=== PATIENT | male | born 1955 | race Caucasian/White ===

== ENCOUNTER 2021-04-11 06:22 | Emergency (ER) | payer OTHER ==
[~2021-04-11] VITALS: Ht 180.3 cm; Wt 117.9 kg
[2021-04-11 08:27] LABS: ABSOLUTE NEUTROPHILS 6.7 thou/uL (1.4-8.2); BASOPHILS 1.1 % (0.0-2.0); EOSINOPHILS 5.4 % (0.0-3.0); HEMOGLOBIN 14.8 gm/dL (14.0-18.0); LYMPHOCYTES 20.7 % (24.0-44.0); MCH 30.8 pg (26.0-34.0); MCHC 33.6 g/dL (28.0-37.0); MCV 91.5 fL (80.0-100.0); MONOCYTES 10.6 % (1.0-8.0); PLATELET COUNT 244 thou/uL (150-400); POLYS 62.2 % (36.0-66.0); RBC 4.81 mil/uL (4.50-6.00); RDW 14.1 % (10.5-14.5); WBC 10.7 thou/uL (4.0-11.0)
[2021-04-11 08:44] LABS: CALCIUM 9.1 mg/dL (8.5-10.1); POTASSIUM 3.9 mmol/L (3.5-5.1)
[2021-04-11 09:46] LABS: APTT 30.1 Seconds (24.5-32.8); INR 2.1; PROTIME 21.7 Seconds (9.3-11.4)
[2021-04-11 12:18] VITALS: BP 173/80
== END 2021-04-11 12:18 | disposition home or self-care (01) ==
LOC: ER 06:22
PROVIDERS: Emergency Medicine
DX: S46.812A Strain of other muscles, fascia and tendons at shoulder and upper arm level, left arm, initial encounter (principal); I50.9 Heart failure, unspecified; I48.91 Unspecified atrial fibrillation; I10 Essential (primary) hypertension; Z86.73 Personal history of transient ischemic attack (TIA), and cerebral infarction without residual deficits; Z79.01 Long term (current) use of anticoagulants; W06.XXXA Fall from bed, initial encounter; Y93.89 Activity, other specified; Y92.89 Other specified places as the place of occurrence of the external cause; Y99.8 Other external cause status

== ENCOUNTER 2021-05-18 04:37 | Emergency (ER) | payer OTHER ==
[~2021-05-18] VITALS: Ht 185.4 cm; Wt 135.2 kg
--- NOTE | ~2021-05-18 | EMS ---
[address] [address] EMS Patient Care Report Name: ANGELIKA GARCIA Room #: DEP HAL Echavarria#: [id number] Admission: 05/18/21 Attend Phys: Discharge: 05/18/21 Date of : 53 Report #: [id number] THIS REPORT FOR: //name// Report Transmitted: 05/21/2021 14:08 EMS Care Summary [place], [place]/[facility] Incident [id number] @ 05/18/2021 03:56 Incident Location [id number] [place] [address] Patient ANGELIKA GARCIA Male, 66 Years 1955 Patient Address [address] [place], [place] [id number] Patient History Hypertension (HTN),Stroke/CVA, Patient Allergies No known allergies, Patient Medications Amiodarone, Levothyroxine, Eliquis, Amlodipine, Atorvastatin, Chief Complaint HEMATOMA TO HEAD Disposition Transported No Lights/[place] Dispatch Reason Falls Transported To [facility] Narrative DISPATCHED EMERGENCY TO THE SCENE OF A REPORTED FALL. UPON ARRIVAL, FOUND PATIENT LAYING SUPINE IN BED, ALERT AND ORIENTED X4, DENYING ANY PAIN OR DISCOMFORT. NURSING STAFF STATES THAT THE PATIENT HAD ROLLED OUT OF BED, [address] [address] EMS Patient Care Report Name: ANGELIKA GARCIA Room #: DEP ER [place]#: [id number] Admission: 05/18/21 Attend Phys: Discharge: 05/18/21 Date of : 53 Report #: [id number] STRIKING HIS FOREHEAD ON THE FLOOR, CAUSING A HEMATOMA ABOVE THE LEFT EYE. PATIENT DENIES ANY LOSS OF CONSCIOUSNESS. PATIENT IS TRANSFERRED TO THE COT AND SECURED. TRANSPORTED TO THE AMBULANCE, LOADED, AND SECURED. VITAL SIGNS ASSESSED. PATIENT IS TRANSPORTED TO [facility] IN A POSITION OF COMFORT. VITAL SIGNS MONITORED DURING TRANSPORT. PATIENT CARE TRANSFERRED TO ED STAFF. Initial Vitals @04:28P: 111,R: 18,BP: 142/91,Pain: 0/10,GCS: 15,SpO2: 97,Revised Trauma: 12, @04:17P: 86,R: 18,BP: 155/86,Pain: 0/10,GCS: 15,CO: 2,SpO2: 97,Revised Trauma: 12, Assessments @04:10MENTAL:Time Oriented,Person Oriented,Place Oriented,Event Oriented,SKIN:HEENT:Eyes: ECC,Head/Face: Swelling,Neck/Airway: No Abnormalities,LUNG SOUNDS:General: No Abnormalities,ABDOMEN:General: No Abnormalities,PELVIS//GI:No Abnormalities,EXTREMITIES:Left Leg: Paralysis,Left Arm: Paralysis,Right Arm: No Abnormalities,Right Leg: No Abnormalities,PULSE:Radial: 2+ Normal,NEURO:No Abnormalities, Impression Injury of Head Procedures @04:10ALS AssessmentResponse: UnchangedSucceeded Timeline 03:54,Call Received 03:54,Dispatch Notified 03:56,Dispatched 03:58,En Route 04:05,On Scene 04:10,At Patient 04:10,ALS Assessment,Response: UnchangedSucceeded, 04:17,BP: 155/86 M,PULSE: 86,RR: 18 R,SPO2: 97 Ox,ETCO2: ,BG: ,PAIN: 0,GCS: 15, 04:19,Depart Scene 04:28,BP: 142/91 M,PULSE: 111,RR: 18 R,SPO2: 97 Ox,ETCO2: ,BG: ,PAIN: 0,GCS: 15, 04:28,At Destination 04:42,Call Closed Disclaimer v1.1 Copyright 2020 [employer] This EMS Care Summary contains data elements from the applicable legal record (which may be displayed differently). It is designed to provide pertinent information for the following purposes: continuity of care, clinical quality, [address] [address] EMS Patient Care Report Name: ANGELIKA GARCIA Room #: DEP HAL Echavarria#: [id number] Admission: 05/18/21 Attend Phys: Discharge: 05/18/21 Date of : 53 Report #: [id number] and state data reporting. The complete legal record is available to ED staff and administrators of the receiving hospital in [employer]'s Patient Tracker. All data is provided "as is."
[2021-05-18 10:54] VITALS: BP 173/87
== END 2021-05-18 10:55 | disposition home or self-care (01) ==
LOC: ER 04:37
DX: D68.318 Other hemorrhagic disorder due to intrinsic circulating anticoagulants, antibodies, or inhibitors (principal); I11.0 Hypertensive heart disease with heart failure; I48.91 Unspecified atrial fibrillation; I50.9 Heart failure, unspecified; Z86.73 Personal history of transient ischemic attack (TIA), and cerebral infarction without residual deficits; W06.XXXA Fall from bed, initial encounter; Y93.89 Activity, other specified; Y92.89 Other specified places as the place of occurrence of the external cause; Y99.8 Other external cause status

== ENCOUNTER 2021-06-08 08:17 | Inpatient (IN) | payer OTHER ==
[~2021-06-08] VITALS: Ht 180.3 cm; Wt 169.8 kg
--- NOTE | ~2021-06-08 | EMS ---
[address] [address] EMS Patient Care Report Name: ANGELIKA GARCIA Room #: REG HAL Echavarria#: [id number] Admission: 06/08/21 Attend Phys: Discharge: Date of : 53 Report #: [id number] THIS REPORT FOR: //name// Report Transmitted: 06/08/2021 07:48 EMS Care Summary [place], [place]/[facility] Incident [id number] @ 06/08/2021 07:40 Incident Location [address] [place] [address] Patient ANGELIKA GARCIA Male, 66 Years 1955 Patient Address [address] [place], [place] [id number] Patient History Hypertension (HTN),Stroke/CVA, Patient Allergies No known allergies, Patient Medications Amiodarone, Amlodipine, Atorvastatin, Levothyroxine, Eliquis, Chief Complaint vomiting blood Disposition Transported No Lights/[place] Dispatch Reason Hemorrhage/Laceration Transported To [facility] Narrative pt found a&o in bed. staff called when pt projectile vomited a large amount of dark red blood w/ clots. no diarrhea. pt states it was unexpected b/c he did not feel sick. he states he feels fine now. no c/o dizziness or abd pain or [address] [address] EMS Patient Care Report Name: ANGELIKA GARCIA Room #: REG HAL Echavarria#: [id number] Admission: 06/08/21 Attend Phys: Discharge: Date of : 53 Report #: [id number] nausea. pt is on blood thinners and has a pacemaker. pt req eval at [facility]. pt blanket pulled to [facility] [place] as listed in flow chart, transport w/o change. Initial Vitals @08:05P: 123,R: 50,BP: 150/78,Pain: 0/10,GCS: 15,SpO2: 95,Revised Trauma: 11, @07:48P: 118,R: 20,BP: 134/84,GCS: 15,SpO2: 95,Revised Trauma: 12, Assessments @07:48MENTAL:No Abnormalities,SKIN:No Abnormalities,HEENT:Head/Face: No Abnormalities,LUNG SOUNDS:General: Vomiting,ABDOMEN:General: Vomiting,PELVIS//GI:EXTREMITIES:PULSE:Radial: 2+ Normal,NEURO: Impression Gastrointestinal hemorrhage Procedures @07:48ALS AssessmentResponse: Unchanged@07:52StretcherResponse: Unchanged@07:563-Lead ECGResponse: Unchanged@08:00Saline Lock 0cc (20 ga) Site: Antecubital-RightResponse: UnchangedFailed Timeline 07:38,Call Received 07:38,Dispatch Notified 07:40,Dispatched 07:41,En Route 07:45,On Scene 07:48,At Patient 07:48,BP: 134/84 M,PULSE: 118,RR: 20 R,SPO2: 95 Ox,ETCO2: ,BG: ,PAIN: ,GCS: 15, 07:48,ALS Assessment,Response: Unchanged 07:52,Stretcher,Response: Unchanged 07:56,3-Lead ECG,Response: Unchanged 08:00,Saline Lock 0cc 20 ga Site: Antecubital-Right,Response: UnchangedFailed, 08:02,Depart Scene 08:05,BP: 150/78 M,PULSE: 123,RR: 50 R,SPO2: 95 Ox,ETCO2: ,BG: ,PAIN: 0,GCS: 15, 08:11,At Destination 08:41,Call Closed Disclaimer v1.1 Copyright 2020 [employer] This EMS Care Summary contains data elements from the applicable legal record (which may be displayed differently). It is designed to provide pertinent information for the following purposes: continuity of care, clinical quality, and state data reporting. The complete legal record is available to ED staff and administrators of the receiving hospital in [employer] Patient Tracker. All data is provided "as is."
[2021-06-08 08:18] VITALS: BP 143/98
[2021-06-08 08:40] LABS: HEMATOCRIT 36.6 % (42.0-52.0)
[2021-06-08 08:41] LABS: ABSOLUTE NEUTROPHILS 7.6 thou/uL (1.4-8.2); BASOPHILS 0.8 % (0.0-2.0); EOSINOPHILS 2.4 % (0.0-3.0); HEMOGLOBIN 11.9 gm/dL (14.0-18.0); LYMPHOCYTES 22.2 % (24.0-44.0); MCH 28.9 pg (26.0-34.0); MCHC 32.6 g/dL (28.0-37.0); MCV 88.7 fL (80.0-100.0); MONOCYTES 12.9 % (1.0-8.0); PLATELET COUNT 247 thou/uL (150-400); POLYS 61.7 % (36.0-66.0); RBC 4.12 mil/uL (4.50-6.00); RDW 13.5 % (10.5-14.5); WBC 12.4 thou/uL (4.0-11.0)
[2021-06-08 08:46] LABS: CALCIUM 8.8 mg/dL (8.5-10.1); CREATININE 0.9 mg/dL (0.7-1.3); POTASSIUM 4.1 mmol/L (3.5-5.1)
--- NOTE | 2021-06-08 08:50 | EKG ---
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: : 1955 Requested By: Leana Cole Order Number: [id number] MD: Thomas Rider Measurements Intervals [place] Rate: 90 P: FL: QRS: 248 QRSD: 141 T: -38 QT: 405 QTc: 496 Interpretive Statements Afib/flut and V-paced complexes No further analysis attempted due to paced rhythm No previous ECG available for comparison Electronically Signed On 06-08-2021 8:50:13 CDT by Thomas Rider [email or web address] <ELECTRONICALLY SIGNED> By: Thomas Rider MD, [facility] 06/08/21 0850 0818 08 Thomas Rider MD, [facility] /EPI
[2021-06-08 08:52] LABS: ALBUMIN 2.7 g/dL (3.4-5.0); TOTAL BILIRUBIN 0.6 mg/dL (0.2-1.0); TOTAL PROTEIN 6.1 g/dL (6.4-8.2)
[2021-06-08 09:13] LABS: APTT 25.2 Seconds (24.5-32.8); PROTIME 10.9 Seconds (9.3-11.4)
[2021-06-08] MEDS ORDERED: TYLENOL325 MG PO (09:16)
[2021-06-08] MEDS ORDERED: NORVASC5 MG PO (09:17)
[2021-06-08] MEDS ORDERED: ASA81BEC PO (09:17)
[2021-06-08] MEDS ORDERED: PACERONE100 MG PO (09:17)
[2021-06-08] MEDS ORDERED: LIPITOR 20 MG T20 M1 PO (09:17)
[2021-06-08] MEDS ORDERED: BACLOFEN5 MG PO (09:18)
[2021-06-08] MEDS ORDERED: B-12 DOTS500 MCG PO (09:19)
[2021-06-08] MEDS ORDERED: FOLIC ACID1 MG PO (09:19)
[2021-06-08] MEDS ORDERED: ELIQUIS5 MG PO (09:19)
[2021-06-08] MEDS ORDERED: VITAMIN D3250 MC2 PO (09:19)
[2021-06-08] MEDS ORDERED: GLYCOLAX119 GM PO (09:20)
[2021-06-08] MEDS ORDERED: LEVOTHYROXINE125 MC1 PO (09:20)
[2021-06-08] MEDS ORDERED: COZAAR100 MG PO (09:20)
[2021-06-08] MEDS ORDERED: LOPRESSOR50 MG PO (09:21)
[2021-06-08] MEDS ORDERED: MELATONIN5 MG SUBLING (09:21)
[2021-06-08] MEDS ORDERED: KLOR-CON 10 ER10 MEQ PO (09:21)
[2021-06-08] MEDS ORDERED: MAGOX 400400 MG PO (09:21)
[2021-06-08] MEDS ORDERED: PROAIR HFA8.5 GM INH (09:21)
[2021-06-08] MEDS ORDERED: SERTRALINE HCL100 MG PO (09:22)
[2021-06-08 11:40] LABS: URINE BILIRUBIN NEGATIVE (Negative); URINE BLOOD NEGATIVE (Negative); URINE CLARITY CLEAR; URINE COLOR YELLOW; URINE GLUCOSE-RANDOM* NEGATIVE (Negative); URINE KETONES TRACE (Negative); URINE NITRITE-REFLEX NEGATIVE (Negative); URINE PROTEIN (DIPSTICK) NEGATIVE (Negative); URINE UROBILINOGEN 0.2 E.U./dl (0.2-1.0)
[2021-06-08 11:43] LABS: URINE LEUKOCYTES-REFLEX 1+ (Negative)
[2021-06-08 12:04] LABS: CASTS None Seen /LPF (None Seen); CRYSTALS None Seen /LPF (None Seen); SQUAMOUS None Seen /LPF (0-3); URINE RBC None Seen /HPF (NONE SEEN); URINE WBC-REFLEX 6-15 Few /HPF (0-5)
[2021-06-08 14:05] VITALS: BP 123/77
[2021-06-08 14:35] VITALS: BP 125/49
--- NOTE | 2021-06-08 15:30 | NUR ---
PT ARRIVED TO ROOM. PT FROM [facility] SINCE MARCH OF 2021. PT WAS HAVING PROJECTILE VOMITING AT FACILITY IN AM. PT DID HAVE BREAKFAST AT FACILITY. NOTICED PT RT NARES HAS DRIED BLOOD. PT DENIES ANY NAUSEA OR PAIN. PT HAS BOWEL SOUNDS. PT FLACCID TO LEFT SIDE OF BODY FROM STROKE, PT DRAWING UP ARM WHEN PUTTING ON BP CUFF. PT IS VERY SLEEPY BP FIRST INITIAL WAS 81/50, 70 PULSE, PT OXYGEN SAT 100% ON ROOM AIR. PT VISITED BY CARDIOLOGY [facility] AND SHE WANTED HIM ON TELE, PT HAS PACEMAKER TO LEFT CHEST. PT HAS HX OF AFIB, CHF, DYSPHAGIA, AND UTI THAT IS CHRONIC. APPLIED TELE MONITOR ON PT AND SHOWING PACED AT 70 RATE.
--- NOTE | 2021-06-08 15:40 | NUR ---
RECHECKED BP AND SHOWS 116/62. DID NOTICE THAT HE HAD AN OLD ARM BAND THAT WAS DATED 05/18.
[2021-06-08 15:50] VITALS: BP 116/62
--- NOTE | 2021-06-08 16:46 | NUR ---
PT ADMITTED RELATED TO UPPER GI BLEED, HEMATEMESIS, ANTICOAGULATED ON TX. CM REVIEWED CHART AND SPOKE WITH CARE TEAM. CM ATTEMPTED TO VISIT WITH PT THIS AFTERNOON BUT HE WAS SLEEPING SOUNDLY. CM CALLED CONTACT HARMAN AGUIRRE . HE INDICATED THAT HE IS PT'S DPOA FOR HC. HE RESIDES IN [place] BUT IS HERE IN CURRENTLY MEETING WITH [employer] TO PROVIDE DOCUMENTATION ON PT'S ASSESSTS FOR THEM TO COMPLETE [place]PLICATION FOR [place]. HARMAN IS PT'S SIG OTHER GARO CLARK'S COUSIN . SHE IS HOME BOUND. HARMAN INDICATED THAT PT HAD GONE TO [facility] IN MARCH AFTER STAY AT [facility] FOLLOWING STROKE. PT IS DEPENDANT FOR CARES. HE HAD BEEN ON A MECHSFT DIET AND HE STATED HE THINKS STAFF OBSERVED PT EATING. HE INDIATED THAT HE ANTICIPATES PT RETURNING HOME ONCE MEDICALLY STABLE. PT TO HAVE AN EGD TOMORROW AM. CM FOLLWING REGARDING DC PLANNING.
--- NOTE | 2021-06-08 18:55 | NUR ---
PT AWAKE DURING ASSESSMENT. PT ALERT AND ORIENTED X3. PT CALLED GIRLFRIEND GARO CLARK AND LEFT MESSAGE ON HER PHONE. PT STATED HE HAD A NOSE BLEED FOR A WHOLE DAY AND NIGHT, THEN THIS AM VOMITED BLACK SUBSTANCE. PT STATED HE HAS SOME PAIN TO BOTH KNEES. PT NPO AT THIS TIME. PT PLACED ON HEART MONITOR AND IS PACED PER PACEMAKER IN THE 70'S, PT DOES HAVE SOME HICCUPS THATS NEW AT THIS TIME.
[2021-06-08 21:18] VITALS: BP 167/90
--- NOTE | 2021-06-09 05:19 | NUR ---
ASSUMED PT CARE AT 1950. PT IS ALERT AND ORIENTED X4. PT HAS HX OF CVA WITH LUE WEAKNESS. PT HAS A PACEMAKER WIH DEFRIBRILLATOR ON THE R CHEST. PT IS CURRENTLY NPO. PT C/O BRYAN KNEE PAIN AND THE NOC CLOTH STRETCHER WAS INFORMED SINCE PT DID NOT HAVE PAIN MEDS IN [place]. VS ARE WITHIN NORMAL RANGE AND MEDS GIVEN PER [facility] ORDERS. PT TOLERATING RA. FALL PECAUTIONS IN PLACE. WILL CONTINUE TO MONITOR.
[2021-06-09 05:43] LABS: HEMATOCRIT 31.9 % (42.0-52.0); MCH 30.6 pg (26.0-34.0); MCHC 34.3 g/dL (28.0-37.0); MCV 89.1 fL (80.0-100.0); RBC 3.58 mil/uL (4.50-6.00); RDW 13.4 % (10.5-14.5); WBC 9.8 thou/uL (4.0-11.0)
[2021-06-09 07:47] VITALS: BP 114/69
--- NOTE | 2021-06-09 08:20 | NUR ---
ASSUMED CARE OF PATIENT AT SHIFT CHANGE. ASSESSMENT CHARTED. MEDS HELD PER NPO STATUS. DENIES PAIN. PATIENT WAS TAKEN TO PACU AT APPROX 0815 FOR EGD. WAS VPACED & SR ON MONITOR. DENIED CHEST PAIN OR SOA. VOICED NO CONCERNS AT TIME OF ASSESSMENT. REASSESSMENT & POST OF VITALS/MONITORING TO BE COMPLETED ONCE PATIENT RETURNS.
[2021-06-09 09:24] VITALS: BP 130/79
[2021-06-09] MEDS ORDERED: PROTONIX 20 MG20 M1 PO (09:37)
[2021-06-09 10:17] VITALS: BP 139/80
[2021-06-09 11:46] VITALS: BP 127/60
--- NOTE | 2021-06-09 15:51 | NUR ---
PATIENT IS TOLERATING PO DIET WELL. VITALS REMAIN STABLE. PROVIDER UPDATED. PATIENT MAY D/C HOME DEPENDING ON PROVIDER OPINION. PATIENT BEING REPOSITIONED Q2HRS. USING BEDPAN. CONDOM CATH PLACED TO HELP W SKIN INTEGRITY. PATIENT VOICED PAIN ON KNEE; NOT NEW-CHRONIC. PATIENT STATED HE HAS BEEN GETTING SHOTS AND TAKING NORCO. PROVIDER PAGED W REQUEST. PATIENT VOICED NO FURTHER ISSUES. WILL CONTINUE TO MONITOR. EGD SUCCESSFUL; SEE GI NOTES. NO GI BLEEDING; UPPER OR LOWER NOTED.
[2021-06-09 16:18] VITALS: BP 136/77
--- NOTE | 2021-06-09 20:03 | NUR ---
CALLED [facility]SP[facility]; LEFT MESSAGE; DID NOT HEAR BACK
[2021-06-09 20:10] VITALS: BP 106/59
--- NOTE | 2021-06-10 05:47 | NUR ---
PAIN CONTROLLED THIS SHIFT. NO BLEEDING NOTED THIS SHIFT. PATIENT ENCOURAGED FLUIDS. PATIENT TURNED Q [address]UTION [address]. PATIENT IN BED ASLEEP AT THIS TIME BREATHING REGULAR AND UNLABOURED
[2021-06-10 07:58] VITALS: BP 114/85
== END 2021-06-10 16:34 | DRG 378 ==
LOC: ER 08:17 → EROBS 11:09 → TBACV 13:05 → EROBS 13:48 → 4W 14:35
PROVIDERS: Anesthesiology; Emergency Medicine; ADMIT Internal Medicine; ATTEND Internal Medicine
PROC: 0W3P8ZZ Control Bleeding in Gastrointestinal Tract, Via Natural or Artificial Opening Endoscopic (ICD-10-PCS; principal; 2021-06-09)
DX: K31.811 Angiodysplasia of stomach and duodenum with bleeding (principal); I69.354 Hemiplegia and hemiparesis following cerebral infarction affecting left non-dominant side; D62 Acute posthemorrhagic anemia; I48.20 Chronic atrial fibrillation, unspecified; I42.9 Cardiomyopathy, unspecified; R04.0 Epistaxis; E03.9 Hypothyroidism, unspecified; E78.5 Hyperlipidemia, unspecified; I11.0 Hypertensive heart disease with heart failure; I50.9 Heart failure, unspecified; Z20.822 Contact with and (suspected) exposure to COVID-19; Z95.0 Presence of cardiac pacemaker; Z79.82 Long term (current) use of aspirin; Z79.899 Other long term (current) drug therapy; Z91.030 Bee allergy status; Z91.013 Allergy to seafood
CPT/HCPCS: 10045; 62110; 62900; 70005